=== PATIENT | male | born 1995 | race Caucasian/White ===

== ENCOUNTER 2022-04-14 07:44 | Emergency (ER) | payer OTHER ==
[~2022-04-14] VITALS: Ht 172.7 cm; Wt 74.8 kg
[2022-04-14 07:54] VITALS: BP 138/73
--- NOTE | 2022-04-14 08:08 | NUR ---
27 y/o male bib self, c/o right ear pain for 1 week with productive cough, congestion, and green mucuos. pt states pain worsens at night. states he uses qtips, but denies any recent trauma to ear. denies any hearing loss. denies nausea, vomiting, diarrhea. skin is pink/warm/dry. a&o x4 with even and steady gait. pt denies anyone sick in the household with the same symptoms. pt denies any fever, cp, sob at this time. pt states pain is 5/10 at this time, sharp pain. vss. patient positioned for comfort. hob elevated. bed down. ermd made aware of pt. pmh: asthma nka med: equate
[2022-04-14] MEDS ORDERED: LORA1T1237 PO (08:38)
[2022-04-14] MEDS ORDERED: NAPR-1704 PO (08:38)
[2022-04-14 09:17] VITALS: BP 138/73
--- NOTE | 2022-04-14 09:17 | NUR ---
Patient discharged with v/s stable. Written and verbal after care instructions given and explained. Patient alert, oriented and verbalized understanding of instructions. Ambulatory with steady gait. All questions addressed prior to discharge. ID band removed. Patient advised to follow up with PMD. Rx of naproxen, loratadine (sent) given. Patient educated on indication of medication including possible reaction and side effects. Opportunity to ask questions provided and answered. work note given
== END 2022-04-14 09:17 | disposition home or self-care (01) ==
LOC: MED 07:44
DX: J45.909 Unspecified asthma, uncomplicated (principal); B34.9 Viral infection, unspecified; H92.01 Otalgia, right ear
CPT/HCPCS: 99282